=== PATIENT | male | born 1995 | race Caucasian/White ===

== ENCOUNTER 2019-01-14 17:03 | Emergency (ER) | payer SELFPAY ==
--- NOTE | 2019-01-14 17:28 | EDM.PDOC ---
ED HPI GENERAL MEDICAL PROBLEM - General Chief Complaint: Abdominal Pain Stated Complaint: ABDOMINAL PAIN, ARM NUMBNESS Time Seen by Provider: 01/14/19 17:28 - History of Present Illness INITIAL COMMENTS - FREE TEXT/NARRATIVE: 23-year-old male presents emergency room with abdominal discomfort nausea vomiting. The patient awoke this morning and just did not feel very good he was achy and developed some nausea vomited one time but it was fairly significant. After vomiting he had some numbness in both arms and developed a little bit of discomfort between her shoulder blades this has since resolved. Patient's past medical history is unremarkable he takes no routine medications has no chronic medical conditions. Epigastric Pain Score (Numeric/FACES): 5 - Related Data Allergies Allergy/AdvReac Type Severity Reaction Status Date / Time ceftriaxone Allergy Cannot Verified 01/14/19 17:27 Remember Home Meds: Home Meds Ondansetron [Zofran ODT] 4 mg PO Q6H PRN #10 tab.dis 01/14/19 [Rx] ED ROS GENERAL - Review of Systems Review Of Systems: See Below Constitutional: Reports: Malaise, Fatigue. Denies: Fever, Chills HEENT: Reports: No Symptoms Respiratory: Reports: No Symptoms Cardiovascular: Reports: No Symptoms GI/Abdominal: Reports: Abdominal Pain, Nausea, Vomiting. Denies: Constipation, Diarrhea : Reports: No Symptoms Musculoskeletal: Reports: No Symptoms Skin: Reports: No Symptoms Neurological: Reports: No Symptoms ED EXAM, GI/ABD - Physical Exam Exam: See Below Exam Limited By: No Limitations General Appearance: Alert, No Apparent Distress Eyes: Bilateral: Normal Appearance Ears: Normal External Exam, Normal Canal, Hearing Grossly Normal, Normal TMs Nose: Normal Inspection, Normal Mucosa, No Blood Throat/Mouth: Normal Inspection, Normal Lips, Normal Teeth, Normal Gums, Normal Oropharynx, Normal Voice, No Airway Compromise, Other (Moist mucosa) Head: Atraumatic, Normocephalic Neck: Normal Inspection, Supple, Non-Tender, Full Range of Motion Respiratory/Chest: No Respiratory Distress, Lungs Clear, Normal Breath Sounds Cardiovascular: Regular Rate, Rhythm, No Edema, No Murmur GI/Abdominal Exam: Normal Bowel Sounds, Soft, Non-Tender Course - Vital Signs Last Recorded V/S: Last Vital Signs Temp 36.8 C 01/14/19 17:24 Pulse 87 01/14/19 17:24 Resp 16 01/14/19 17:24 BP 135/76 01/14/19 17:24 Pulse Ox 97 01/14/19 17:24 - Orders/Labs/Meds Meds: Medications Discontinued Medications Generic Name Dose Route Start Last Admin Trade Name Freq PRN Reason Stop Dose Admin Ondansetron HCl 4 mg 01/14/19 18:08 01/14/19 18:17 Zofran Odt PO 01/14/19 18:09 4 mg ONETIME ONE Administration - Re-Assessments/Exams Free Text/Narrative Re-Assessment/Exam: 01/14/19 18:24 Discussed treatment options this point the patient will makes most sense is given him some Zofran encourage fluids the next 24 hours as he probably has an early gastroenteritis patient agrees to return to the emergency room if he worsens. Departure - Departure Time of Disposition: 18:25 Disposition: Home, Self-Care 01 Clinical Impression: Gastroenteritis - Discharge Information Prescriptions: Ondansetron [Zofran ODT] 4 mg PO Q6H PRN #10 tab.dis PRN Reason: Nausea/Vomiting Referrals: PCP,None [Primary Care Provider] - Forms: ED Department Discharge Additional Instructions: Return to emergency room with any questions problems worsening symptoms. Return in 24 hours if not improving Use the Zofran as needed for nausea and vomiting. Clear liquid diet for the next 24 hours then slowly advance as tolerated
[2019-01-14] MEDS ORDERED: Ondansetron 4 MG Tab.DIS PO ONE (18:08)
== END 2019-01-14 18:50 | disposition home or self-care (01) ==
LOC: JD.ED 17:03
DX: K52.9 Noninfective gastroenteritis and colitis, unspecified (principal); Z88.8 Allergy status to other drugs, medicaments and biological substances
CPT/HCPCS: 99283; A9270